=== PATIENT | female | born 1970 | race Caucasian/White ===

== ENCOUNTER → 2016-11-04 | Outpatient (CLI) | payer OTHER ==
[~2016-11-04] MED LIST: ACETAMINOPHEN650 M3 PO; AMITRYPTYLINE PO; AMOXICILLIN500 M1 PO; ATENOLOL PO; ATENOLOL50 MG PO; BACTRIM DS TABL1 TA1 PO; BENADRYL25 MG PO; CYANOCOBALAMI100 MCG PO; DOXEPIN PO; ERYTHROCIN INJ; FIORICET W/CODE1 CAP PO; FLEXERIL PO; FLEXERIL10 M1 PO; FLEXERIL10 MG PO; FLONASE16 GM; HYDROCODON-ACE1 EAC7 PO; IBUPROFEN800 MG PO; LIPITOR PO; LIPITOR20 MG PO; LORTAB 5/500 TA1 TA1 PO; LORTAB 7.5-5001 TAB PO; MEDROL DOSEPAK4 MG DOB; MEDROL PO; NAPROXEN PO; ORUDIS75 M1 PO; PERCOCET10 PO; PERCOCET5/325 PO; PREDNISONE PO; PREDNISONE1 MG PO; PROZAC PO; VICODIN 5/1 TAB 5/50 PO; VICODIN 5/500 T1 TAB PO; VOLTAREN75 MG PO; ZITHROMAX PO; ZITHROMAX1 G/PKT PO; ZOFRANODT PO; ZOLOFT PO
--- NOTE | ~2016-11-04 | CR142 ---
[facility]. [facility] A Service of [facility] & [facility] RADIOLOGY TEXT RESULTS PATIENT: JARED MITCHELL LOCATION: [facility] : 66 UNIT #: [id number] AGE: [address]: Ambrosio Staton MD SEX: F ORDER DR: [id number] [address] [address] [id number] O MR#: [id number] Acc #: [id number] NAME: JARED MITCHELL : 1970 SEX: F STUDY DATE/TIME: 11/04/2016 11:11 UNIT: [facility] ROOM: STUDY DESCRIPTION: CR Hand Min 3 Views Rt Attending Physician: Ambrosio Staton M.D. Referring Physician: Ambrosio Staton M.D. Ordering Physician: Ambrosio Staton M.D. Primary Care Physician: Ambrosio Staton M.D. MEDICAL IMAGING REPORT This report is preliminary unless electronic signature is present. EXAM Right hand INDICATIONS Right hand pain and swelling in joints for the last month may be up to 2 years which is getting worse the last month. FINDINGS 3 views of the right hand were obtained. The bones are normal. There was no joint space narrowing. There is no erosion. IMPRESSION Normal right hand Dictated by... Venu Bueno M.D. THIS IS AN ELECTRONICALLY VERIFIED REPORT Venu Bueno M.D. at 11/05/2016 7:08 AM LEO/neil TD: 11/05/2016 03:14 JOB #: [id number] MEDICAL IMAGING REPORT Page 1 of 1
--- NOTE | ~2016-11-04 | CR141 ---
[facility]. [facility] A Service of [facility] & [facility] RADIOLOGY TEXT RESULTS PATIENT: JARED MITCHELL LOCATION: [facility] : 66 UNIT #: [id number] AGE: [address]: Ambrosio Staton MD SEX: F ORDER DR: [id number] [address] [address] [id number] O MR#: [id number] Acc #: [id number] NAME: JARED MITCHELL : 1970 SEX: F STUDY DATE/TIME: 11/04/2016 11:11 UNIT: [facility] ROOM: STUDY DESCRIPTION: CR Hand Min 3 Views Lt Attending Physician: Ambrosio Staton M.D. Referring Physician: Ambrosio Staton M.D. Ordering Physician: Ambrosio Staton M.D. Primary Care Physician: Ambrosio Staton M.D. MEDICAL IMAGING REPORT This report is preliminary unless electronic signature is present. EXAM Left hand INDICATIONS Left hand pain and swelling for 2 years which is worse the last month. FINDINGS Three-views of the left hand were obtained. Bones and joints are normal in appearance. There is no degenerative change. IMPRESSION Normal left hand Dictated by... Venu Bueno M.D. THIS IS AN ELECTRONICALLY VERIFIED REPORT Venu Bueno M.D. at 11/05/2016 7:08 AM LEO/neil TD: 11/05/2016 03:19 JOB #: [id number] MEDICAL IMAGING REPORT Page 1 of 1
== END | disposition home or self-care (01) ==
LOC: SRAD 11:00
DX: M25.541 Pain in joints of right hand (principal); M25.542 Pain in joints of left hand; M79.89 Other specified soft tissue disorders
CPT/HCPCS: 73130